=== PATIENT | female | born 2000 | race Two or more races ===

== ENCOUNTER 2021-09-01 19:02 | Emergency (ER) | payer SELFPAY ==
[2021-09-01 19:37] VITALS: BP 109/77; PULSE 94; TEMP 97.7; BMI 22.8
[2021-09-01] MEDS ORDERED: ONDANSETRON *ODT* 4 MG TABLET SL ONE (21:01)
[2021-09-01] MEDS ORDERED: MAG HYDROX/AL HYDROX/SIMETH 30 ML UNIT-DOSE CUP PO ONE (21:01)
[2021-09-01] MEDS ORDERED: FAMOTIDINE 20 MG TABLET PO ONE (21:01)
[2021-09-01] MEDS ORDERED: ONDANSETRON *ODT* 4 MG TABLET ONE (21:14)
[2021-09-01] MEDS ORDERED: FAMOTIDINE 20 MG TABLET ONE (21:14)
[2021-09-01] MEDS ORDERED: MAG HYDROX/AL HYDROX/SIMETH 30 ML UNIT-DOSE CUP ONE (21:15)
[2021-09-01 21:35] LABS: EPI CELLS 20 /uL (0-25.1); HYALINE CASTS 3 /uL (0-3.1); URINE APPEARANCE CLEAR; URINE BACTERIA 83 /uL (0-1359); URINE BILIRUBIN NEGATIVE (NEGATIVE); URINE COLOR YELLOW; URINE GLUCOSE (UA) NEGATIVE (NEGATIVE); URINE KETONE 1+ (NEGATIVE); URINE LEUK ESTERASE NEGATIVE (NEGATIVE); URINE NITRITE NEGATIVE (NEGATIVE); URINE PROTEIN NEGATIVE (NEGATIVE); URINE RBC 12 /uL (0-23.9); URINE WBC 7 /uL (0-25.8)
[2021-09-01 21:36] LABS: HCG,QUALITATIVE URINE Negative
== END 2021-09-01 22:16 | disposition home or self-care (01) ==
LOC: JER 19:02
DX: K29.00 Acute gastritis without bleeding (principal)
CPT/HCPCS: 81003; 84703; 99283-25; Q0162